=== PATIENT | female | born 2000 | race Caucasian/White ===

== ENCOUNTER 2018-12-07 19:27 | Emergency (ER) | payer SELFPAY ==
[2018-12-07 19:28] VITALS: BP 142/76; PULSE 92; RESP 19; TEMP 38.2; O2SAT 99; BMI 35.5
--- NOTE | 2018-12-07 21:20 | RAD_ITS ---
STUDY: X-RAY CHEST REASON FOR EXAM: Female, 17 years old. Cough TECHNIQUE: Frontal and lateral views of the chest COMPARISON: None. FINDINGS: The lungs are clear. There are no pleural effusions. There is no pneumothorax. The heart is normal in size. The visualized osseous structures are within normal limits. RAD/Chest PA and Lateral IMPRESSION: No acute thoracic pathology. Electronically Signed: Zohaib De Leon, at 21:46 EST Tel , Service support ,
[2018-12-07] MEDS: Oxymetazoline 0.05% 1 SPRAY SPRAY.BTL NASAL (21:44)
[2018-12-07] MEDS: Naproxen 500 MG Tablet PO (21:44)
[2018-12-07] MEDS: Benzonatate 100 MG Capsule 200 MG PO (21:44)
[2018-12-07 22:02] LABS: Internal QC Validated? YES +Cl - CLEAR BKGD; Pregnancy, Urine Negative Negative
--- NOTE | 2018-12-07 22:58 | ED.DCSUM_ITS ---
- ER Visit Summary Date of Service: 12/07/18 Chief Complaint: Cough and fever History of Present Illness: The patient is a 17 F who reports cough and fever for the past 4 days. She describes yellow sputum with some blood streaks. She reports sore throat. She thinks her T-max has been between 101 and 102. She last took Tylenol approximate 6 hours prior to arrival. She states her period is 2 weeks late and she is not sure she may be . Physical Examination: Vital signs significant for temperature 100.7, otherwise unremarkable. Patient sitting upright in bed. She is congested but in no acute distress. Head neck examination reveals TMs to be clear bilaterally. She has posterior pharyngeal drainage. Tonsils are 2+ with no exudate. Uvula is midline. She does have bilateral cervical lymphadenopathy. Heart is regular rate and rhythm. Lungs sounds are coarse bilaterally but no rhonchi or wheezes noted. Abdomen soft nontender. Test Results: Two-view chest x-ray shows no acute pathology. Urine test is negative. Emergency Department Course and Treatment: Patient was given Tessalon, Naprosyn, and Afrin. On repeat evaluation she reported feeling improved. She is written off work until free of fever for 24 hours. She is given prescription for albuterol and Tessalon. Treatment Plan: [] Disposition: Discharge Impression: Bronchitis This note was generated with [employer] dictation software. It may contain incorrect words, spelling, and punctuation that were not noted in review of the chart prior to signing ED Disposition - Plan for ED Patient: Disposition: Home or Assisted Living Instructions: ED Upper Resp Infec No Abx Tx Prescriptions: Albuterol Inhaler [Ventolin Hfa] 1 - 2 puff INHALATION Q4H PRN PRN #1 inhaler PRN Reason: Wheezing Benzonatate [Tessalon Perle] 200 mg PO TID PRN PRN #20 capsule PRN Reason: Cough Referrals: Marilu Ltaif MD [STAFF PHYSICIAN] - As Needed
[2018-12-07 23:27] VITALS: BP 138/70; PULSE 89; RESP 16; O2SAT 96
== END 2018-12-07 23:32 | disposition home or self-care (01) ==
PROVIDERS: Emergency Provider Emergency Medicine
DX: J40 Bronchitis, not specified as acute or chronic (principal)
CPT/HCPCS: 71046; 81025; 99283

== ENCOUNTER 2019-02-09 19:57 | Emergency (ER) | payer SELFPAY ==
[2019-02-09 19:57] VITALS: BP 152/79; PULSE 74; RESP 16; TEMP 36.6; O2SAT 95; BMI 40.4
--- NOTE | 2019-02-09 20:16 | ED.RN ---
PT STATES SHE HAS KNEE PAIN FREQUENTLY BUT THIS MORNING SHE WAS HAVING LOWER BACK PAIN SO SEVERE SHE COULD NOT GET OUT OF BED THIS MORNING, PT STATES SHE HAD NUMBNESS IN HER ARM THAT STARTED IN HER WRIST AND MOVED UP THE ARMS SLOWLY TOWARD THE NECK LAST WEEK WELL. PT DENIES NUMBNESS OR TINGLING IN THE LEGS AND HAD PULSES AND SENSATION INTACT IN BOTH LEGS.
--- NOTE | 2019-02-09 20:28 | ED.VISSUMM ---
- ER Visit Summary Date of Service: 02/09/19 Chief Complaint: back pain History of Present Illness: The patient is a 18 F who presents for 2 months of back pain. Back pain is in the lower lumbar region bilaterally. Patient states she has a history of scoliosis and has a issues with back pain all her life. Her back pain this morning was so severe that she was unable to get out of bed and go to work. Patient has been taking ibuprofen. Pain is aching and currently moderate in intensity. Patient denies any fever, abdominal pain, nausea or vomiting, loss of bowel or bladder control, urinary symptoms, history of cancer or history of IV drug use. Physical Examination: Vital signs: afebrile, hemodynamically stable, no hypoxia on room air General: well nourished, well developed, in no distress Skin: warm, dry, no rash, no pallor HEENT: normocephalic and atraumatic; PERRL, EOMI, moist mucous membranes Cardiovascular: regular rate and rhythm without murmurs, no peripheral edema, 2+ pulses all distal extremities Respiratory: No increased work of breathing, lungs are clear to auscultation bilaterally, no rales, rhonchi or wheezing Abdominal: Abdomen is soft, nontender with normoactive bowel sounds, no guarding or rebound, no masses MSK: Moves all extremities, no deformities, normal strength Back: Patient has diffuse paraspinal tenderness in the lumbar region, no point tenderness in the midline lumbar spine, no erythema or induration. Strength and sensation are normal in all muscle groups, gait is normal. Pulses symmetric and equal in the lower extremities. Neuro: Awake and alert, oriented ?4. No facial droop, sensation and motor function intact and symmetric Test Results: [] Emergency Department Course and Treatment: Patient has no red flag symptoms that would be concerning for cauda equina syndrome, epidural abscess or hematoma, discitis or other emergent cause of her back pain. We discussed nonmedication therapies that may help patient with her back pain, including gentle exercise, yoga, stretching, heating pads, and weight loss. Patient will use [id number] anti-inflammatories as needed. Patient was discharged home with a work note. Treatment Plan: [] Disposition: [] Impression: Acute on chronic back pain, lumbar This note was generated with [employer] software. It may contain incorrect words, spelling, and punctuation that were not noted in review of the chart prior to signing ED Disposition - Plan for ED Patient: Disposition: Home or Assisted Living Instructions: Relieving Back Pain, ED Exercises Lumbar Muscles Referrals: Care Physician,No Primary [Primary Care Provider] - Jhon Rose MD [STAFF PHYSICIAN] - As soon as possible Additional Instructions: If you have any worsening of your condition or any new concerning symptoms, please return immediately to the emergency department for another evaluation.
[2019-02-09 20:34] VITALS: RESP 17
== END 2019-02-09 20:34 | disposition home or self-care (01) ==
PROVIDERS: Emergency Provider Emergency Medicine
DX: M54.5 Low back pain (principal); G89.29 Other chronic pain; M41.9 Scoliosis, unspecified
CPT/HCPCS: 99282

== ENCOUNTER 2020-03-13 15:08 | Emergency (ER) | payer SELFPAY ==
[2020-03-13 15:10] VITALS: BP 156/75; PULSE 78; RESP 17; TEMP 36.2; O2SAT 98; BMI 42.2
--- NOTE | 2020-03-13 15:18 | ED.DCSUM_ITS ---
History of Present Illness Chief Complaint: General Illness Informant: Patient Onset: Yesterday Narrative: Patient presents stating that she needs a note that she may return to work. She works at the [employer]. Yesterday she believes she had food poisoning with diarrhea. She had eaten chicken wings from [employer]. Her also got ill. Symptoms are completely resolved at this time and she feels back to her baseline. She has no further diarrhea. She never had fever or chills. Past Medical History - Allergies and Home Meds Allergies/Adverse Reactions: Allergies No Known Allergies Allergy (Verified 03/13/20 15:09) Primary Care Physician: Care Physician,No Primary [Primary Care Provider] - Prior records reviewed: Yes Past Medical History: None Lives: Spouse/ Significant Other Smoking Status: Never smoker Review of Systems General: Denies: Chills, Fever Eyes: Denies: Visual changes - bilaterally ENT: Denies: Bilateral ear pain Cardiovascular: Denies: Chest pain Respiratory: Denies: Dyspnea, Cough Gastrointestinal: Reports: Diarrhea. Denies: Abdominal pain, Nausea, Vomiting Genitourinary: Denies: Dysuria Musculoskeletal: Denies: Swelling, Extremity Pain Skin: Denies: Rash Neurological: Denies: Headache Hematologic: Denies: Easy bruising Allergy: Denies: Uticaria Physical Exam Vital Signs/Narrative: Vital Signs Temp Pulse Resp BP Pulse Ox 03/13/20 15:10 97.1 F L 78 17 156/75 H 98 Inital Vital Signs reviewed: Yes General: Well nourished, Well developed Head: Normocephalic ENT: Moist mucous membranes Neck: Supple Cardiovascular: Regular rate, Regular rhythm Respiratory: No distress, CTA bilaterally Abdomen: Soft, Nontender, Normal bowel sounds Skin: Normal color Neurological: Alert, Oriented x3 Psychological: Normal affect Diagnostic/Tx/Re-eval - Medical Decision Making At this time patient has a normal physical exam and normal vital signs. Do not suspect COVID-19 infection. Work note will be written for her. ED Disposition - Plan for ED Patient: Disposition: Home or Assisted Living Diagnosis: Diarrhea Instructions: ED Vomiting and Diarrhea Nonspecific Adult Referrals: Care Physician,No Primary [Primary Care Provider] -
== END 2020-03-13 15:36 | disposition home or self-care (01) ==
LOC: ED 15:36
PROVIDERS: Emergency Provider Emergency Medicine
DX: R19.7 Diarrhea, unspecified (principal)
CPT/HCPCS: 99282

== ENCOUNTER 2023-01-18 13:57 | Emergency (ER) | payer MEDICAID, SELFPAY ==
[2023-01-18 13:59] VITALS: BP 167/93; PULSE 103; RESP 18; TEMP 35.8; O2SAT 96; BMI 491.6
--- NOTE | 2023-01-18 14:17 | EX.ED.DYSGE1 ---
HPI History of Present Illness Chief Complaint: Allergic Reaction Informant: patient Narrative Narrative: History of idiopathic urticaria presenting the ED worsening lip swelling with pruritic symptoms. She has been having on and off symptoms for 5 years. There is autoimmune component is concerning. She sees her PCP tomorrow for referral to a specialist. She had allergy testing back in 2017 with no significant findings. She states seen in [place] [facility] 5 days ago for chest pains had an EKG with placed on prednisone 50 mg daily. She is on her fifth day. Today 8 AM took her Benadryl took a nap awoke and took her prednisone and feels more miserable with the burning and itching. No tongue swelling. No trouble breathing or swallowing. She states typically his oral medications would help, this time has not. She has been given IV medicines with improvement in the past. Prior similar symptoms: Yes [facility] Medical History (Updated 01/18/23 @ 16:[address] Harvey Lopez DO) Acute idiopathic urticaria Anxiety Bipolar 1 disorder Depression Prehypertension Home Medications dexamethasone 4 mg tablet 12 mg PO .asdir #6 tabs 01/18/23 [Rx Last Taken Unknown] famotidine 20 mg tablet (Pepcid) 20 mg PO BID #60 tabs 01/18/23 [Rx Last Taken Unknown] Allergy/AdvReac Type Severity Reaction Status Date / Time No Known Allergies Allergy Verified 01/18/23 13:58 Family History no significant family his Surgical History no surgical history Social History Smoking Status: Never smoker ROS ROS ED Constitutional Constitutional ED: Denies chills, fever(s) or sweats Eyes Eyes: Denies change in vision ENT ENT ED: Denies dysphagia or sore throat Cardiovascular Cardiovascular: Denies chest pain, leg edema, palpitations or racing heartbeat Respiratory/Chest Respiratory/Chest: Denies cough, dyspnea or dyspnea on exertion Gastrointestinal Gastrointestinal: Denies abdominal pain, diarrhea, nausea or vomiting Genitourinary Genitourinary ED: Denies dysuria, hematuria or urinary frequency Musculoskeletal Musculoskeletal: Denies back pain, extremity pain or neck pain Integumentary Reports wounds and other Details: Urticarial lesions, lip swelling ; Denies rash Neurologic Neurologic: Denies headache(s), paresthesias or weakness EXAM Physical Exam Const Vital Signs: 01/18/23 13:59 01/18/23 15:57 Temperature 96.4 F L Temperature Source Temporal Pulse Rate 103 H 89 Respiratory Rate 18 16 Blood Pressure 167/93 H 133/64 H Blood Pressure Mean 117 87 Pulse Ox 96 97 Oxygen Delivery Method Room Air Positive well nourished and well developed General Appearance ED: well developed and NAD HEENT Reports moist mucous membranes HEENT Narrative: Flushing to the cheeks, upper and lower lip swelling, no tongue swelling, no swelling or edema no stridor. Airway patent. normocephalic and atraumatic Eyes PERRL, EOMs intact bilaterally and conjunctivae normal General Eye ED: Yes normal appearance of both eyes Neck no lymphadenopathy and supple General: Negative for tenderness Chest Wall Chest: Negative for tenderness Resp normal respiratory effort and normal air movement Effort and Inspection: symmetric chest movement; Negative for respiratory distress Cardio regular rate, regular rhythm and no murmurs Peripheral Pulses: pulses 2+ throughout GI normal to inspection, nondistended, normoactive bowel sounds and non-tender Palpation: Negative for guarding or rebound tenderness present Back/Spine no CVA tenderness and no thoracic nor lumbar tenderness Extremity normal to inspection General Extremety ED: Negative for edema or tenderness General Extremity: Negative for edema Neuro oriented x3 and no sensory deficits noted Sensorium / Orientation: awake and alert Skin Skin Narrative: Nursing present for exam, scattered small urticarial lesions bilateral upper thighs, left upper chest, no large urticarial findings. MDM MDM MDM Narrative Medical decision making narrative: Interventions / MDM: Differential diagnosis: Idiopathic urticaria, angioedema, Diagnosis considered but do not suspect: N/A My EKG interpretation: N/A Imaging independently reviewed and interpreted by myself: N/A External documents reviewed: N/A Test considered but not ordered:N/A ED course: Patient with no airway compromise. Noted urticarial lesions that are scattered with lip swelling which she reports is not typical. Do not feel epinephrine is necessary and patient agrees at this time. We will establish IV will give medications of Solu-Medrol, Benadryl, Pepcid. Will reevaluate. Re-evaluation: 1320: Sleeping however clinically is improving. Swelling the lip also improving. We will continue to monitor. 1630: Symptoms resolve lip swelling currently totally improved. She finished her prednisone today at 50 mg. Discussed with patient we will give her dexamethasone to use tomorrow if symptoms persist she will repeat in 3 days. She is given 30-day prescription for Pepcid however she will use it twice a day for 5 days so she has prescription use for her likely reoccurrence for antihistamine treatment. She has an epinephrine pen. She has appoint with her doctor tomorrow for referral. She is discharged with her significant other. All questions were answered. Disposition discussed with patient/family/significant other: Patient Case discussed with consulting clinician: N/A Discharge Plan Triage Chief Complaint: Allergic Reaction ED Provider: Harvey Lopez Dx/Rx/DC Orders Clinical Impression: Angioedema, Idiopathic urticaria Instructions: ED Angioedema, ED Hives (Adult) Prescriptions: New famotidine [Pepcid] 20 mg tablet 20 mg PO BID Qty: 60 0RF dexamethasone 4 mg tablet 12 mg PO .asdir Qty: 6 0RF Rx Instructions: If symptoms persist take 3 tabs tomorrow 01/19/2023, then repeat in 3 days. Primary Care Provider: Shreyas Brennan Referrals: Shreyas Brennan MD [Primary Care Provider] - 1 Day Activity Restrictions/Additional Instructions: If symptoms persist start the dexamethasone tomorrow and then repeat in 3 days. Pepcid use twice a day for the next 5 days. Continue Benadryl as needed. Follow-up with your doctor as scheduled tomorrow. Disposition Disposition: Home, Self Care Discharge Date/Time: 01/18/23 16:37
[2023-01-18] MEDS: DiphenhydrAMINE 50 MG/ML Syringe IV (14:51)
[2023-01-18] MEDS: MethylPREDNISolone 125 MG/2 ML Vial IV (14:51)
[2023-01-18] MEDS: Famotidine 200 MG/20 ML MDV 20 MG in 0.9% Normal Saline (Pres. free 8 ML 300 MG IV (14:51)
[2023-01-18 15:57] VITALS: BP 133/64; PULSE 89; RESP 16; O2SAT 97
== END 2023-01-18 16:37 | disposition home or self-care (01) ==
PROVIDERS: Emergency Provider Emergency Medicine; PCP Internal Medicine; Visit Provider Emergency Medicine
DX: T78.3XXA Angioneurotic edema, initial encounter (principal); X58.XXXA Exposure to other specified factors, initial encounter
CPT/HCPCS: 96374; 96375; 99284; J7050; J3490

== ENCOUNTER 2024-10-29 19:14 | Emergency (ER) | payer SELFPAY ==
[2024-10-29 19:15] VITALS: BP 132/79; PULSE 100; RESP 18; TEMP 36.8; O2SAT 96; BMI 48.2
--- NOTE | 2024-10-29 20:00 | RAD_ITS ---
INDICATION: cough EXAMINATION/TECHNIQUE: X-RAY - XR Chest 1 View COMPARISON: 12/07/2018. FINDINGS: The lungs are clear. The cardiomediastinal silhouette is unremarkable. No pleural effusion or pneumothorax. No acute osseous abnormalities. RAD/Chest 1 View (Portable) IMPRESSION: No acute radiographic abnormalities. Electronically Signed: Osmin Bryant MD at 21:25 EST ,
[2024-10-29 22:14] VITALS: BP 125/78; PULSE 88; RESP 16; TEMP 36.7; O2SAT 99
--- NOTE | 2024-10-29 23:23 | EX.ED.DYSGE1 ---
HPI History of Present Illness Chief Complaint: Shortness of Breath Informant: patient and friend Narrative Narrative: Patient is a 23-year-old female with past medical history of anxiety depression and bipolar disorder. She states she has had 2 days of nasal congestion cough and shortness of breath. She states that she knows there is been a uptake in people with pneumonia and based on her symptoms has concern for this and therefore comes in for evaluation. Patient denies any history of lung disorders such as asthma COPD or emphysema [facility] Medical History Acute idiopathic urticaria Anxiety Bipolar 1 disorder Depression Prehypertension Home Medications ?Medication ?Instructions ?Recorded ?Last Taken ?Type famotidine 20 mg tablet (Pepcid) 20 mg PO BID #60 tabs 01/18/23 Unknown Rx loratadine 10 mg tablet (Claritin) 10 mg PO DAILY 06/07/23 Unknown History meclizine 25 mg tablet mg PO 06/07/23 Unknown History ofloxacin 0.3 % ear drops drp otic (ear) 06/07/23 Unknown History ondansetron HCl 8 mg tablet 8 mg PO Q8H PRN nausea and 06/07/23 Unknown Rx vomiting #10 tabs azelastine 137 mcg (0.1 %) nasal 2 spray intranasal BID #30 mL 10/29/24 Unknown Rx spray benzonatate 200 mg capsule 200 mg PO TID PRN cough #30 caps 10/29/24 Unknown Rx prednisone 20 mg tablet 40 mg (2 x 20 mg) PO DAILY 5 days 10/29/24 Unknown Rx #10 tabs Allergy/AdvReac Type Severity Reaction Status Date / Time No Known Allergies Allergy Verified 10/29/24 19:15 Family History no significant family his Social History Smoking Status: Never smoker ROS ROS ED Constitutional Constitutional ED: Denies chills or fever(s) ENT ENT ED: Reports rhinorrhea and sore throat Cardiovascular Cardiovascular: Denies chest pain Respiratory/Chest Respiratory/Chest: Reports cough and dyspnea Gastrointestinal Gastrointestinal: Denies abdominal pain, diarrhea, nausea or vomiting Genitourinary Genitourinary ED: Denies dysuria Musculoskeletal Musculoskeletal: Reports myalgias Integumentary Denies rash Neurologic Neurologic: Reports headache(s) Hematologic/Lymphatic Hematologic/Lymphatic: Denies easy bleeding or easy bruising Allergic/Immunologic Allergic/Immunologic ED: Denies mouth swelling or tongue swelling EXAM Physical Exam Const Vital Signs: 10/29/24 19:15 Temperature 98.3 F Temperature Source Oral Pulse Rate 100 Respiratory Rate 18 Blood Pressure 132/79 H Blood Pressure Mean 96 Pulse Ox 96 Oxygen Delivery Method Room Air Positive well nourished, well developed and obese General Appearance ED: well developed; Negative for pallor Nutritional Appearance: obese HEENT HEENT Narrative: No tongue or lip swelling no oral lesions no airway edema or compromise Nasal mucosa is hyperemic and boggy with enlarged inferior nasal turbinate There is cobblestoning noted in the posterior pharynx consistent with sinus drainage no secondary findings to suggest infection Eyes PERRL and EOMs intact bilaterally General Eye ED: Negative for scleral icterus Neck supple and no JVD Resp normal respiratory effort Resp Narrative: Breath sounds are diminished throughout but overall clear to auscultation without signs of respiratory distress Cardio regular rate and regular rhythm Extremity normal to inspection Extremity Narrative: No asymmetric edema no pitting edema negative Homans' sign bilaterally Neuro oriented x3, CN's II-XII intact bilaterally and no sensory deficits noted Sensorium / Orientation: alert Motor Exam: strength 5/5 throughout Psych Mood & Affect: anxious Skin no rashes or lesions noted General Skin Exam: Negative for jaundice or pallor MDM MDM MDM Narrative Medical decision making narrative: Patient arrived to the ER with stable vitals and in no acute respiratory distress. Her constellation symptoms of cough congestion muscle aches and headache is concerning for viral infection such as COVID versus influenza versus RSV. There is also potential for pneumonia versus pneumothorax versus pleural effusion. As she has stable vitals I do not feel need for blood work but an x-ray and viral swab will be obtained. X-ray revealed no acute lung pathology and viral swab was positive for influenza. This does correlate with the patient's symptoms. However as she is not in respiratory distress or showing signs of sepsis there is no need for further evaluation in ER she is otherwise safe for discharge History & Record Review Discussion w/independent historian: Patient Radiography Diagnostic Testing: Clinical Impression(s) from Imaging Studies Chest X-Ray 10/29/24 20:00 IMPRESSION: No acute radiographic abnormalities. Electronically Signed: Osmin Bryant MD at 21:25 [facility] , Chest x-ray as interpreted by the emergency medicine physician reveals no acute infiltrate pneumothorax or pleural effusion Discharge Plan Triage Chief Complaint: Shortness of Breath Other Complaint: Cough ED Provider: Ifeanyi Torres Dx/Rx/DC Orders Clinical Impression: Influenza, Anxiety and depression, Bipolar disorder Instructions: ED Influenza (Adult) Prescriptions: New prednisone 20 mg tablet 40 mg PO DAILY 5 Days Qty: 10 0RF benzonatate 200 mg capsule 200 mg PO TID PRN (Reason: cough) Qty: 30 0RF azelastine 137 mcg (0.1 %) spray,non-aerosol 2 spray intranasal BID Qty: 30 0RF Rx Instructions: administer into each nostril No Action ofloxacin 0.3 % drops otic (ear) meclizine 25 mg tablet PO Patient Comments: TAKE 1 TABLET BY MOUTH EVERY 6 HOURS NEEDED (DIZZINESS). loratadine [Claritin] 10 mg tablet 10 mg PO DAILY ondansetron HCl 8 mg tablet 8 mg PO Q8H PRN (Reason: nausea and vomiting) Qty: 10 0RF famotidine [Pepcid] 20 mg tablet 20 mg PO BID Qty: 60 0RF Primary Care Provider: Shreyas Brennan Referrals: Shreyas Brennan MD [Primary Care Provider] - Print Language: Afghan Disposition Disposition: Home, Self Care Discharge Date/Time: 10/29/24 23:39
[2024-10-29] MEDS: Albuterol Sulfate 8 gm Inhaler (60 puffs) 2 PUFF INHALATION (23:30)
[2024-10-29 23:33] VITALS: BP 115/78; PULSE 91; RESP 16; TEMP 36.7; O2SAT 100; O2SAT 98
[2024-10-29] MEDS: Benzonatate 100 MG Capsule 200 MG PO (23:36)
[2024-10-29] MEDS: predniSONE 20 MG Tablet 60 MG PO (23:37)
== END 2024-10-29 23:39 | disposition home or self-care (01) ==
PROVIDERS: Emergency Provider Emergency Medicine; PCP Internal Medicine; Visit Provider Emergency Medicine
DX: J11.1 Influenza due to unidentified influenza virus with other respiratory manifestations (principal); F31.9 Bipolar disorder, unspecified; F41.9 Anxiety disorder, unspecified; E66.9 Obesity, unspecified; Z79.899 Other long term (current) drug therapy
CPT/HCPCS: 71045; 87631; 94640; 99283

== ENCOUNTER 2024-12-23 01:51 | Emergency (ER) | payer SELFPAY ==
[2024-12-23 01:53] VITALS: BP 137/82; PULSE 99; RESP 18; TEMP 37.1; O2SAT 98; BMI 49.7
--- NOTE | 2024-12-23 01:58 | EX.ED.DYSGE1 ---
HPI History of Present Illness Chief Complaint: Other, Pain/Inj Informant: patient Onset/Context/Timing Onset: Yesterday Context: Gradual Onset Timing: Continuous Quality: Swelling Location: Lip, jaw, mouth Worsened by: Nothing Relieved by: Nothing Narrative Narrative: Patient presents with facial and jaw swelling that began yesterday morning. Patient states it is gradually gotten worse. Patient states this started in her upper lip and then progressed to her jaw and to the inside of her mouth. Patient states she feels like her tonsils are swollen as well. Patient states nothing makes her symptoms worse and nothing makes them better. Patient states that when she gets a viral illness, her swelling seems to get worse. Patient denies any difficulty breathing or difficulty swallowing. [facility] Medical History (Updated 12/23/24 @ 03:[address] Oral Lan, ) Prehypertension Bipolar 1 disorder Anxiety Depression Acute idiopathic urticaria Home Medications ?Medication ?Instructions ?Recorded ?Last Taken ?Type famotidine 20 mg tablet (Pepcid) 20 mg PO BID #60 tabs 01/18/23 Unknown Rx loratadine 10 mg tablet (Claritin) 10 mg PO DAILY 06/07/23 Unknown History meclizine 25 mg tablet mg PO 06/07/23 Unknown History ofloxacin 0.3 % ear drops drp otic (ear) 06/07/23 Unknown History ondansetron HCl 8 mg tablet 8 mg PO Q8H PRN nausea and 06/07/23 Unknown Rx vomiting #10 tabs azelastine 137 mcg (0.1 %) nasal 2 spray intranasal BID #30 mL 10/29/24 Unknown Rx spray benzonatate 200 mg capsule 200 mg PO TID PRN cough #30 caps 10/29/24 Unknown Rx amoxicillin 500 mg tablet 500 mg PO TID #30 tabs 12/23/24 Unknown Rx prednisone 20 mg tablet 40 mg (2 x 20 mg) PO DAILY 5 days 12/23/24 Unknown Rx #10 tabs Allergy/AdvReac Type Severity Reaction Status Date / Time No Known Allergies Allergy Verified 12/23/24 01:59 Family History no significant family his Surgical History no surgical history no surgical history Social History Smoking Status: Never smoker ROS ROS ED Constitutional Constitutional ED: Denies chills or fever(s) Eyes Eyes: Denies blurry vision or change in vision ENT ENT ED: Reports rhinorrhea and sore throat Cardiovascular Cardiovascular: Denies chest pain or palpitations Respiratory/Chest Respiratory/Chest: Denies cough or dyspnea Gastrointestinal Gastrointestinal: Reports nausea; Denies vomiting Genitourinary Genitourinary ED: Denies dysuria or hematuria Musculoskeletal Musculoskeletal: Denies back pain or neck pain Integumentary Denies abscess or rash Neurologic Neurologic: Denies headache(s) or weakness Allergic/Immunologic Allergic/Immunologic ED: Denies mouth swelling or urticaria EXAM Physical Exam Const Vital Signs: 12/23/24 01:53 12/23/24 02:00 Temperature 98.7 F Temperature Source Oral Pulse Rate 99 Respiratory Rate 18 Respiratory Effort Normal Respiratory Pattern Normal Blood Pressure 137/82 H Blood Pressure Mean 100 Pulse Ox 98 Oxygen Delivery Method Room Air Positive well nourished and well developed Constitutional Narrative: BMI is 49.7 General Appearance ED: well developed and NAD HEENT Reports moist mucous membranes HEENT Narrative: There is some mild edema of the tonsils bilaterally. Airway is patent. There are no exudates noted. There is no sublingual edema. There is no evidence of Fidel's angina. Neck supple and no JVD Resp normal respiratory effort and clear to auscultation bilaterally Cardio regular rate and regular rhythm GI non-tender and non-distended Palpation: soft Neuro oriented x3, CN's II-XII intact bilaterally and no sensory deficits noted Sensorium / Orientation: alert Motor Exam: strength 5/5 throughout Psych mental status grossly normal MDM MDM MDM Narrative Medical decision making narrative: Differential diagnosis includes urticaria, angioedema, strep pharyngitis, and viral upper respiratory infection. Rapid strep will be obtained to assess for strep pharyngitis. COVID-19, influenza, and RSV PCR will be obtained to assess for viral upper respiratory infection. Lab Data Lab results narrative: Rapid strep was reviewed and was positive. COVID-19 PCR was reviewed and was negative. Influenza PCR was reviewed and was negative for influenza A and influenza B. RSV PCR was reviewed and was negative. Treatment and Re-Evaluation :: Patient was given a dose of prednisone here. Patient was advised of the findings. Patient was given a dose of amoxicillin here. Patient is given prescription for prednisone and amoxicillin. Patient was instructed to follow-up with her primary care physician in 5 to 7 days. Patient was instructed to continue using Claritin and Pepcid as needed. Patient was instructed to return if worse in any way. Patient understood and was agreeable with the plan. All questions were answered. Discharge Plan Triage Chief Complaint: Other, Pain/Inj ED Provider: Oral Lan Dx/Rx/DC Orders Clinical Impression: Acute streptococcal pharyngitis, Acute idiopathic urticaria Instructions: ED Pharyngitis, Strep (Confirmed) Prescriptions: New amoxicillin 500 mg tablet 500 mg PO TID Qty: 30 0RF Continued prednisone 20 mg tablet 40 mg PO DAILY 5 Days Qty: 10 0RF No Action ofloxacin 0.3 % drops otic (ear) meclizine 25 mg tablet PO Patient Comments: TAKE 1 TABLET BY MOUTH EVERY 6 HOURS NEEDED (DIZZINESS). loratadine [Claritin] 10 mg tablet 10 mg PO DAILY ondansetron HCl 8 mg tablet 8 mg PO Q8H PRN (Reason: nausea and vomiting) Qty: 10 0RF famotidine [Pepcid] 20 mg tablet 20 mg PO BID Qty: 60 0RF benzonatate 200 mg capsule 200 mg PO TID PRN (Reason: cough) Qty: 30 0RF azelastine 137 mcg (0.1 %) spray,non-aerosol 2 spray intranasal BID Qty: 30 0RF Rx Instructions: administer into each nostril Primary Care Provider: Shreyas Brennan Referrals: Shreyas Brennan MD [Primary Care Provider] - 5-7 Days Print Language: Hungarian Disposition Disposition: Home, Self Care
[2024-12-23] MEDS: predniSONE 20 MG Tablet 60 MG PO (02:19)
[2024-12-23] MEDS: AMOXICILLIN 500 MG CAPSULE PO (03:23)
== END 2024-12-23 03:25 | disposition home or self-care (01) ==
PROVIDERS: Emergency Provider Emergency Medicine; PCP Internal Medicine; Visit Provider Emergency Medicine
DX: J02.0 Streptococcal pharyngitis (principal); F31.9 Bipolar disorder, unspecified; L50.1 Idiopathic urticaria
CPT/HCPCS: 87631; 87651; 99283